=== PATIENT | female | born 1950 | race Two or more races ===

== ENCOUNTER 2020-03-30 14:48 | Outpatient (CLI) | payer OTHER | END 2020-03-30 15:20 | disposition home or self-care (01) | LOC: OFIC 805 14:48 | PROVIDERS: ATTEND Otolaryngology | DX: H60.8X1 Other otitis externa, right ear (principal); H93.8X1 Other specified disorders of right ear ==

== ENCOUNTER → 2020-04-05 | Outpatient (CLI) | payer OTHER | END | disposition home or self-care (01) | LOC: OFIC 805 13:30 | PROVIDERS: ATTEND Otolaryngology | DX: H60.8X1 Other otitis externa, right ear (principal); H91.8X1 Other specified hearing loss, right ear; H93.8X1 Other specified disorders of right ear ==

== ENCOUNTER 2020-04-12 08:04 | Outpatient (CLI) | payer OTHER | END 2020-04-12 10:20 | disposition home or self-care (01) | LOC: OFIC 805 08:04 | PROVIDERS: ATTEND Otolaryngology | DX: H60.8X1 Other otitis externa, right ear (principal); H93.8X1 Other specified disorders of right ear; H61.21 Impacted cerumen, right ear; H90.41 Sensorineural hearing loss, unilateral, right ear, with unrestricted hearing on the contralateral side ==